=== PATIENT | female | born 1980 | race Caucasian/White ===

== ENCOUNTER 2018-01-10 01:31 | Emergency (ER) | payer SELFPAY ==
[2018-01-10] MEDS ORDERED: Morphine 4 MG/ML VIAL ONE ×2 (01:43→04:45)
[2018-01-10] MEDS ORDERED: Ketorolac Tromethamine 30 MG/ML VIAL ONE (01:43)
[2018-01-10 02:14] LABS: #Basophils 0.1 thou/uL (0.0-0.2); #Lymphocytes 2.2 thou/uL (1.20-3.40); #Monocytes 0.6 thou/uL (0.11-0.59); #Neutrophils 7.2 thou/uL (1.40-6.50); %Basophils 0.9 % (0.0-1.0); %Eosinophils 0.3 % (0.0-10.0); %Lymphocytes 21.8 % (21.0-51.0); %Monocytes 6.2 % (0.0-10.0); %Neutrophils 70.8 % (42.0-75.0); Hemoglobin 14.1 g/dL (12.0-16.0); Mean Corpuscular HGB CONC 33.8 g/dL (32.0-36.0); Mean Corpuscular Hemoglobin 30.6 pg (27.0-31.0); Mean Corpuscular Volume 90.6 fL (78.0-98.0); Platelet Count 257 thou/uL (130-400); RBC Distribution Width 11.3 % (11.5-14.5); Red Blood Cell (RBC) Count 4.62 mill/uL (4.20-5.40); White Blood Cell (WBC) Count 10.2 thou/uL (4.8-10.8)
[2018-01-10 02:18] LABS: INR-International Normal Ratio 1.2; PTT 22.6 SEC (22.9-36.1); Prothrombin Time 14.8 SEC (12.0-14.7)
[2018-01-10 02:32] LABS: BHCG - Serum Negative (NEGATIVE); Pregs Control Background? CLEAR/WHITE (CLR/WHITE); Pregs Control Bar Appear? YES (CONTROL BAR)
[2018-01-10 02:35] LABS: ALT (SGPT) 13 U/L (8-55); AST (SGOT) 19 U/L (5-34); Albumin 4.3 g/dL (3.5-5.0); Alkaline Phosphatase 45 U/L (40-150); Anion Gap 14 mmol/L (10-20); BUN (Urea Nitrogen) 10 mg/dL (7.0-18.7); Bilirubin, Total Less than 0.2 mg/dL (0.2-1.2); Calc. Creatinine Clearance 0 mL/min (70-130); Calcium 8.5 mg/dL (7.8-10.44); Carbon Dioxide 21 mmol/L (22-29); Chloride 111 mmol/L (98-107); Estimated GFR-MDRD Greater than 90; Globulin 2.5 g/dL (2.4-3.5); Glucose 105 mg/dL (70-105); Lipase 36 U/L (8-78); Protein, Total 6.8 g/dL (6.0-8.3); Sodium 142 mmol/L (136-145)
[2018-01-10 03:26] LABS: Bilirubin Negative (Negative); Blood, Urine Moderate (Negative); Clarity CLEAR (Clear); Glucose, Urine (Dipstick) Negative (Negative); Leukocyte Trace (Negative); Nitrite Negative (Negative); Protein, Urine (Dipstick) Negative (Neg-Trace); Specific Gravity, Urine 1.013 (1.002-1.036); Urobilinogen 0.2 mg/dL (0.2-1.0)
[2018-01-10 03:30] LABS: Bacteria/HPF 2+ HPF (None Seen); Hyaline Casts/LPF 0-3 HYALINE CAST LPF (0-3 Hyaline); Pathc Cast-AUWi Flag 0.58 (0-2.49); Squamous Epithelial 0-3 HPF (0-3)
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
[2018-01-10] MEDS ORDERED: Iopamidol 370 76% 100 ML VIAL ONE (16:34)
== END 2018-01-10 05:45 | disposition home or self-care (01) ==
LOC: ERS 01:31
DX: S76.311A Strain of muscle, fascia and tendon of the posterior muscle group at thigh level, right thigh, initial encounter (principal); N13.30 Unspecified hydronephrosis; N39.0 Urinary tract infection, site not specified; V43.62XA Car passenger injured in collision with other type car in traffic accident, initial encounter
CPT/HCPCS: 36415; 70450; 71045; 72125; 72170; 74177; 80053; 81003; 81015; 83690; 84703; 85025; 85610; 85730; 86850; 86900; 86901; 96361; 96374; 96375; 96376; G0390; J1885; J2270

== ENCOUNTER 2019-01-26 13:23 | Emergency (ER) | payer SELFPAY ==
[2019-01-26 15:49] LABS: #Basophils 0.1 thou/uL (0.0-0.2); #Eosinphils 0.1 thou/uL (0.0-0.7); #Lymphocytes 3.1 thou/uL (1.20-3.40); #Monocytes 0.5 thou/uL (0.11-0.59); #Neutrophils 3.5 thou/uL (1.40-6.50); %Basophils 1.2 % (0.0-1.0); %Eosinophils 1.4 % (0.0-10.0); %Lymphocytes 42.5 % (21.0-51.0); %Monocytes 6.2 % (0.0-10.0); %Neutrophils 48.7 % (42.0-75.0); Hemoglobin 14.9 g/dL (12.0-16.0); Mean Corpuscular HGB CONC 33.2 g/dL (32.0-36.0); Mean Corpuscular Hemoglobin 29.7 pg (27.0-31.0); Mean Corpuscular Volume 89.5 fL (78.0-98.0); Platelet Count 203 thou/uL (130-400); RBC Distribution Width 11.4 % (11.5-14.5); Red Blood Cell (RBC) Count 5.03 mill/uL (4.20-5.40); White Blood Cell (WBC) Count 7.2 thou/uL (4.8-10.8)
[2019-01-26 16:00] LABS: BHCG - Serum Negative (NEGATIVE); Pregs Control Background? CLEAR/WHITE (CLR/WHITE); Pregs Control Bar Appear? YES (CONTROL BAR)
[2019-01-26 16:11] LABS: ALT (SGPT) 7 U/L (8-55); AST (SGOT) 11 U/L (5-34); Albumin 4.5 g/dL (3.5-5.0); Alkaline Phosphatase 45 U/L (40-110); Anion Gap 11 mmol/L (10-20); BUN (Urea Nitrogen) 15 mg/dL (7.0-18.7); Bilirubin, Total 0.3 mg/dL (0.2-1.2); Calc. Creatinine Clearance 0 mL/min (70-130); Calcium 9.4 mg/dL (7.8-10.44); Carbon Dioxide 25 mmol/L (22-29); Chloride 107 mmol/L (98-107); Estimated GFR-MDRD Greater than 90; Globulin 2.5 g/dL (2.4-3.5); Glucose 93 mg/dL (70-105); Lipase 14 U/L (8-78); Sodium 139 mmol/L (136-145)
[2019-01-26] MEDS ORDERED: Ondansetron PF 4 MG/2 ML Vial ONE (16:31)
[2019-01-26] MEDS ORDERED: Ketorolac Tromethamine 30 MG/ML VIAL ONE (16:31)
--- NOTE | 2019-01-26 16:36 | CT ---
CT ABDOMEN AND PELVIS WITH IV CONTRAST 01/26/2019 CLINICAL INFORMATION: Reducible mass left inguinal canal. Lower abdominal pain for past 2 weeks intermittently. Intermitten t nausea. COMPARISON: Obvious left inguinal hernia is seen 01/10/2018 Technique: Multiple contiguous axial CT images are obtained through the abdomen and pelvis with IV contrast. Cor onal reformatted images are provided. FINDINGS: Lower Chest: within normal limits. Vessels: Abdominal aorta is normal in caliber. Abdomen: Portal vein:Patent Gallbladder: Within normal limits for CT imaging. Liver: within normal limits. Spleen: Granulomata present. Pancreas: within normal limits. Adrenals: within normal limits. Kidneys: Nonobstructing left renal calculi are again present. There is persistent mild left hydroneph rosis, but the dilated left ureter noted on the prior examination is no longer seen. The exact etiology for mild left hydronephrosis is uncertain based on this exam. The right kidney has a normal CT appearance for phase of imaging. Bowel: Small to moderate amount of retained fecal material is seen throughout the colon. Appendix: Not definitely visualized on this exam. Patient has a reported history of prior appendectom y. Peritoneum: No ascites or free air; no fluid collection. Mesentery and Retroperitoneum: No enlarged mesenteric or retroperitoneal lymph nodes. Abdominal Wall: within normal limits. Pelvis: Reproductive Organs: A 2 cm low-density cystic lesion with peripheral rim of enhancement is seen in t he left adnexa which may represent involuting cyst or dominant follicle. Additional cystic lesions seen within each adnexal region on the prior study have resolved. Pelvis within normal limits. Bladder: within normal limits. Bones: Postsurgical changes right femur are again seen. IMPRESSION: 1. Persistent mild left hydronephrosis with interval resolution of the left hydroureter. Etiology for the left hydronephrosis is uncertain based on this exam. 2. Stable multiple nonobstructing left renal calculi. 3. Patient reportedly has reducible mass in the left inguinal canal; however, no left inguinal hernia is visualized. 4. Constipation.
== END 2019-01-26 17:30 | disposition home or self-care (01) ==
LOC: ERS 13:23
DX: K42.9 Umbilical hernia without obstruction or gangrene (principal)
CPT/HCPCS: 36415; 74177; 80053; 83605; 83690; 84703; 85025; 96361; 96374; 96375; J1885; J2405

== ENCOUNTER 2020-08-29 15:20 | Outpatient (CLI) | payer MEDICAID ==
[2020-08-29 17:59] LABS: #Eosinphils 0.2 10x3/uL (0.0-0.5); #Monocytes 0.4 10x3/uL (0.0-1.1); #Neutrophils 6.1 10x3/uL (1.5-8.4); %Basophils 0.4 % (0.0-2.0); %Eosinophils 2.2 % (0.0-6.0); %Lymphocytes 26.7 % (18.0-47.0); %Monocytes 4.6 % (0.0-10.0); %Neutrophils 65.8 % (40.0-75.0); Hemoglobin 13.8 g/dL (12.0-15.5); Mean Corpuscular HGB CONC 32.5 g/dL (32.0-36.0); Mean Corpuscular Hemoglobin 29.7 pg (27.0-33.0); Mean Corpuscular Volume 91.4 fl (81.6-98.3); Mean Platelet Volume 12.8 fl (7.4-10.4); Platelet Count 200 10x3/uL (150-450); RBC Distribution Width 12.1 % (11.5-14.5); Red Blood Cell (RBC) Count 4.65 10x6/uL (3.90-5.03); White Blood Cell (WBC) Count 9.3 10x3/uL (3.5-10.5)
[2020-08-29 18:08] LABS: BHCG - Serum Negative (NEGATIVE); Pregs Control Background? CLEAR/WHITE (CLR/WHITE); Pregs Control Bar Appear? YES (CONTROL BAR)
[2020-08-30 07:19] LABS: SARS-CoV-2 PCR by NAA Not Detected (NotDetected)
== END 2020-08-29 15:21 | disposition home or self-care (01) ==
LOC: LABBT 15:20
PROVIDERS: ATTEND Surgery
DX: Z01.812 Encounter for preprocedural laboratory examination (principal); Z20.822 Contact with and (suspected) exposure to COVID-19
CPT/HCPCS: 84703; 85025; U0003; U0005

== ENCOUNTER 2022-05-23 14:26 | Outpatient (CLI) | payer OTHER | END 2022-05-23 14:27 | disposition home or self-care (01) | LOC: BICULT 14:26 | PROVIDERS: ATTEND Surgery | DX: R10.32 Left lower quadrant pain (principal) | CPT/HCPCS: 76999 ==

== ENCOUNTER 2022-07-27 18:40 | Emergency (ER) | payer OTHER ==
[~2022-07-27 18:40] MED LIST: Iopamidol-370 76% 500 ML MDV (1 ML CHARGE) ONE
[2022-07-27] MEDS ORDERED: Ondansetron PF 4 MG/2 ML Vial ONE (20:31)
[2022-07-27] MEDS ORDERED: Morphine 4 MG/ML VIAL ONE (20:31)
[2022-07-27 20:44] LABS: #Basophils 0.1 thou/uL (0.0-0.2); #Eosinphils 0.1 thou/uL (0.0-0.7); #Monocytes 0.4 thou/uL (0.11-0.59); %Basophils 0.6 % (0.0-1.0); %Eosinophils 1.3 % (0.0-10.0); %Lymphocytes 43.5 % (21.0-51.0); %Neutrophils 49.5 % (42.0-75.0); Hemoglobin 13.9 g/dL (12.0-16.0); Mean Corpuscular Hemoglobin 30.5 pg (27.0-31.0); Mean Corpuscular Volume 89.7 fl (78.0-98.0); Mean Platelet Volume 11.4 fL (7.4-10.4); Platelet Count 232 10x3/uL (130-400); RBC Distribution Width 12.1 % (11.5-14.5); Red Blood Cell (RBC) Count 4.56 mill/uL (4.20-5.40)
[2022-07-27 21:06] LABS: ALT (SGPT) 17 U/L (8-55); AST (SGOT) 15 U/L (5-34); Albumin 4.6 g/dL (3.5-5.0); Alkaline Phosphatase 66 U/L (40-110); Anion Gap 12 mmol/L (10-20); BUN (Urea Nitrogen) 22 mg/dL (7.0-18.7); Bilirubin, Total 0.3 mg/dL (0.2-1.2); Calc. Creatinine Clearance 0 mL/min (70-130); Calcium 9.6 mg/dL (7.8-10.44); Carbon Dioxide 25 mmol/L (22-29); Chloride 105 mmol/L (98-107); Estimated GFR 109; Globulin 2.5 g/dL (2.4-3.5); Glucose 81 mg/dL (70-105); Potassium 3.9 mmol/L (3.5-5.1); Protein, Total 7.1 g/dL (6.0-8.3); Sodium 138 mmol/L (136-145)
[2022-07-27] MEDS ORDERED: Lidocaine 1% PF 5 ML VIAL ONE (22:11)
== END 2022-07-27 23:13 | disposition home or self-care (01) ==
LOC: ERS 18:40
DX: M79.81 Nontraumatic hematoma of soft tissue (principal); F17.210 Nicotine dependence, cigarettes, uncomplicated
CPT/HCPCS: 36415; 74177; 80053; 85025; 96374; 96375; J2270; J2405; Q9967

== ENCOUNTER 2022-09-06 13:43 | Emergency (ER) | payer OTHER ==
[2022-09-06] MEDS ORDERED: Morphine 4 MG/ML VIAL ONE (14:35)
[2022-09-06 14:41] LABS: #Monocytes 0.3 thou/uL (0.11-0.59); #Neutrophils 1.2 thou/uL (1.40-6.50); %Basophils 0.9 % (0.0-1.0); %Lymphocytes 27.3 % (21.0-51.0); %Monocytes 15.3 % (0.0-10.0); %Neutrophils 56.5 % (42.0-75.0); Mean Corpuscular HGB CONC 33.3 g/dL (32.0-36.0); Mean Corpuscular Hemoglobin 30.3 pg (27.0-31.0); Mean Corpuscular Volume 91.1 fl (78.0-98.0); Platelet Count 147 10x3/uL (130-400); RBC Distribution Width 12.3 % (11.5-14.5); Red Blood Cell (RBC) Count 4.62 mill/uL (4.20-5.40); White Blood Cell (WBC) Count 2.2 10x3/uL (4.8-10.8)
[2022-09-06 15:05] LABS: ALT (SGPT) 16 U/L (8-55); AST (SGOT) 19 U/L (5-34); Albumin 4.9 g/dL (3.5-5.0); Alkaline Phosphatase 71 U/L (40-110); Anion Gap 9 mmol/L (10-20); BUN (Urea Nitrogen) 12 mg/dL (7.0-18.7); Bilirubin, Total 0.2 mg/dL (0.2-1.2); Calc. Creatinine Clearance 0 mL/min (70-130); Calcium 9.4 mg/dL (7.8-10.44); Carbon Dioxide 29 mmol/L (22-29); Chloride 104 mmol/L (98-107); Estimated GFR 99; Globulin 2.6 g/dL (2.4-3.5); Glucose 96 mg/dL (70-105); Lipase 10 U/L (8-78); Potassium 3.8 mmol/L (3.5-5.1); Protein, Total 7.5 g/dL (6.0-8.3); Sodium 138 mmol/L (136-145)
[2022-09-06 17:51] LABS: Bacteria/HPF None Seen HPF (None Seen); Bilirubin Negative (Negative); Blood, Urine 3+ (Negative); CAUTI Indications for Culture Pregnancy; Clarity Turbid (Clear); Glucose, Urine (Dipstick) Normal (Negative); Ketone, Urine 10 mg/dL (Negative); Leukocyte Negative Leu/uL (Negative); Nitrite Negative (Negative); Protein, Urine (Dipstick) 50 mg/dL (Neg-Trace); RBC/HPF Greater than 50 HPF (0-3); Specific Gravity, Urine 1.026 (1.002-1.036); Urobilinogen Normal mg/dL (Less than 2); pH, Urine 5.5 (5.0-9.0)
[2022-09-06 17:52] LABS: Pregnancy Test - Urine (BHCG) Negative (Negative); Pregu Control Background? CLEAR/WHITE (CLR/WHITE); Pregu Control Bar Appear? YES (CONTROL BAR); Specific Gravity 1.026 (1.002-1.036)
[2022-09-06 17:53] LABS: Urine Culture Reflex Yes Yes
[2022-09-06] MEDS ORDERED: cefTRIAXone (ROCEPHIN) 1 GM VIAL ONE (18:53)
== END 2022-09-06 19:30 | disposition home or self-care (01) ==
LOC: ERS 13:43
DX: R10.9 Unspecified abdominal pain (principal); F17.210 Nicotine dependence, cigarettes, uncomplicated
CPT/HCPCS: 36415; 74177; 80053; 81001; 81025; 83690; 85025; 87086; 94760; 96365; 96375; J0696; J2270; Q9967

== ENCOUNTER 2022-11-28 12:38 | Outpatient (CLI) | payer OTHER | END 2022-11-28 12:39 | disposition home or self-care (01) | LOC: BICRAD 12:38 | PROVIDERS: ATTEND Physician Assistant Medical | DX: K59.09 Other constipation (principal) | CPT/HCPCS: 74019 ==

== ENCOUNTER 2023-01-07 14:12 | Outpatient (CLI) | payer OTHER ==
[~2023-01-07 14:12] MED LIST changes: +Iopamidol 370 76% 100 ML VIAL ONE; -Iopamidol-370 76% 500 ML MDV (1 ML CHARGE) ONE
== END 2023-01-07 14:13 | disposition home or self-care (01) ==
LOC: BICCT 14:12
PROVIDERS: ATTEND Urology
DX: N13.2 Hydronephrosis with renal and ureteral calculous obstruction (principal); R35.0 Frequency of micturition; N36.8 Other specified disorders of urethra; Z72.0 Tobacco use
CPT/HCPCS: 74178

== ENCOUNTER 2023-02-25 13:11 | Outpatient (CLI) | payer OTHER ==
[2023-02-25 14:30] LABS: Bilirubin Neg (Negative); Blood, Urine 10 (Negative); Clarity Slightly Cloudy (Clear); Glucose, Urine (Dipstick) Normal (Negative); Ketone, Urine 5 mg/dL (Negative); Leukocyte 500 (Negative); Nitrite Negative (Negative); Protein, Urine (Dipstick) 30 mg/dl (Neg-Trace)
[2023-02-25 14:46] LABS: Hematocrit 43.8 % (34.9-44.5); Hemoglobin 14.1 g/dL (12.0-15.5); Mean Corpuscular HGB CONC 32.2 g/dL (32.0-36.0); Mean Corpuscular Hemoglobin 29.9 pg (27.0-33.0); Mean Platelet Volume 11.4 fl (7.4-10.4); Platelet Count 306 10x3/uL (150-450); RBC Distribution Width 11.7 % (11.5-14.5); Red Blood Cell (RBC) Count 4.71 10x6/uL (3.90-5.03)
[2023-02-25 14:50] LABS: BHCG - Serum Negative (NEGATIVE); Pregs Control Background? CLEAR/WHITE (CLR/WHITE); Pregs Control Bar Appear? YES (CONTROL BAR)
[2023-02-25 14:55] LABS: RBC/HPF 0-3 HPF (0-3)
[2023-02-25 14:56] LABS: Bacteria/HPF 4+ HPF (None Seen); Mucous/LPF 1+ LPF (<2+)
[2023-02-25 14:57] LABS: Anion Gap 17 mmol/L (10-20); BUN (Urea Nitrogen) 13 mg/dL (7.0-18.7); Calc. Creatinine Clearance 0 mL/min (70-130); Calcium 9.4 mg/dL (7.8-10.44); Carbon Dioxide 23 mmol/L (22-29); Chloride 107 mmol/L (98-107); Estimated GFR 92; Glucose 80 mg/dL (70-105); Prothrombin Time 10.9 sec (9.5-12.1); Sodium 142 mmol/L (136-145)
[2023-02-25 15:12] LABS: Potassium 5.1 mmol/L (3.5-5.1)
== END 2023-02-25 13:12 | disposition home or self-care (01) ==
LOC: LABBT 13:11
PROVIDERS: ATTEND Urology
DX: Z01.818 Encounter for other preprocedural examination (principal); F41.1 Generalized anxiety disorder; F11.21 Opioid dependence, in remission; N13.2 Hydronephrosis with renal and ureteral calculous obstruction; N30.01 Acute cystitis with hematuria; R35.0 Frequency of micturition; N81.0 Urethrocele; Z72.0 Tobacco use
CPT/HCPCS: 80048; 81001; 84703; 85027; 85610; 85730; 87086; 93005; 93010

== ENCOUNTER 2023-09-02 12:57 | Outpatient (CLI) | payer OTHER ==
[2023-09-02] MEDS ORDERED: Iopamidol 100 ML FS ONE (13:16)
== END 2023-09-02 12:58 | disposition home or self-care (01) ==
LOC: RAD 12:57
PROVIDERS: ATTEND Urology
DX: N13.2 Hydronephrosis with renal and ureteral calculous obstruction (principal); R31.29 Other microscopic hematuria
CPT/HCPCS: 74410; Q9967

== ENCOUNTER 2023-09-30 14:01 | Outpatient (CLI) | payer OTHER ==
[2023-09-30 16:00] LABS: #Basophils 0.04 10x3/uL (0.0-0.2); %Basophils 0.4 % (0.0-1.0); %Eosinophils 0.3 % (0.0-10.0); %Lymphocytes 32.2 % (21.0-51.0); %Monocytes 4.1 % (0.0-10.0); %Neutrophils 62.7 % (42.0-75.0); Hematocrit 43.9 % (36.0-47.0); Hemoglobin 14.4 g/dL (12.0-16.0); Mean Corpuscular HGB CONC 32.8 g/dL (32.0-36.0); Mean Corpuscular Hemoglobin 30.5 pg (27.0-31.0); Mean Platelet Volume 11.9 fL (7.4-10.4); Platelet Count 217 10x3/uL (130-400); RBC Distribution Width 11.8 % (11.5-14.5); Red Blood Cell (RBC) Count 4.72 mill/uL (4.20-5.40)
[2023-09-30 16:12] LABS: BHCG - Serum Negative (NEGATIVE); Pregs Control Background? CLEAR/WHITE (CLR/WHITE); Pregs Control Bar Appear? YES (CONTROL BAR)
[2023-09-30 16:27] LABS: INR-International Normal Ratio 1.1; Prothrombin Time 14.6 sec (12.0-14.7)
[2023-09-30 16:28] LABS: PTT 26.9 sec (22.9-36.1)
[2023-09-30 16:56] LABS: Anion Gap 12 mmol/L (10-20); BUN (Urea Nitrogen) 11 mg/dL (7.0-18.7); Calc. Creatinine Clearance 0 mL/min (70-130); Calcium 9.4 mg/dL (7.8-10.44); Carbon Dioxide 26 mmol/L (22-29); Chloride 110 mmol/L (98-107); Estimated GFR 94; Glucose 88 mg/dL (70-105); Potassium 3.4 mmol/L (3.5-5.1); Sodium 145 mmol/L (136-145)
== END 2023-09-30 14:02 | disposition home or self-care (01) ==
LOC: LABBT 14:01
PROVIDERS: ATTEND Urology
DX: Z01.818 Encounter for other preprocedural examination (principal); N13.30 Unspecified hydronephrosis; N20.0 Calculus of kidney; F11.21 Opioid dependence, in remission; F41.1 Generalized anxiety disorder; N36.8 Other specified disorders of urethra; N13.5 Crossing vessel and stricture of ureter without hydronephrosis; N30.01 Acute cystitis with hematuria; R31.29 Other microscopic hematuria; N36.2 Urethral caruncle; K40.91 Unilateral inguinal hernia, without obstruction or gangrene, recurrent; Z72.0 Tobacco use
CPT/HCPCS: 80048; 81001; 84703; 85025; 85610; 85730; 87086; 93005; 93010

== ENCOUNTER 2023-10-09 19:48 | Inpatient (IN) | payer OTHER ==
[2023-10-09] MEDS ORDERED: NOREPINEPHRINE 8 MG/250 ML-D5W 250 ML ONE ×2 (20:04)
[2023-10-09 20:38] LABS: Hematocrit 40.8 % (36.0-47.0); Hemoglobin 13.6 g/dL (12.0-16.0); Mean Corpuscular HGB CONC 33.3 g/dL (32.0-36.0); Mean Corpuscular Volume 92.9 fL (78.0-98.0); Platelet Count 190 10x3/uL (130-400); RBC Distribution Width 12.6 % (11.5-14.5); Red Blood Cell (RBC) Count 4.39 mill/uL (4.20-5.40)
[2023-10-09 20:40] LABS: ALT (SGPT) 15 U/L (8-55); AST (SGOT) 20 U/L (5-34); Albumin 2.8 g/dL (3.5-5.0); Alkaline Phosphatase 76 U/L (40-110); Anion Gap 22 mmol/L (10-20); BUN (Urea Nitrogen) 36 mg/dL (7.0-18.7); Bilirubin, Total 0.3 mg/dL (0.2-1.2); Calc. Creatinine Clearance 0 mL/min (70-130); Calcium 8.4 mg/dL (7.8-10.44); Carbon Dioxide 21 mmol/L (22-29); Chloride 99 mmol/L (98-107); Estimated GFR 27; Glucose 90 mg/dL (70-105); Potassium 5.6 mmol/L (3.5-5.1); Protein, Total 5.8 g/dL (6.0-8.3); Sodium 136 mmol/L (136-145)
[2023-10-09 20:45] LABS: Troponin I 0.047 ng/mL (< 0.028)
[2023-10-09] MEDS ORDERED: Sodium Chloride 0.9% 0 ML ONE (20:55)
[2023-10-09] MEDS ORDERED: Cefepime 2 GM VIAL ONE (20:55)
[2023-10-09] MEDS ORDERED: Ondansetron PF 4 MG/2 ML Vial ONE ×3 (21:10→21:15)
[2023-10-09 21:12] LABS: Band 23 % (5-11); Burr Cells SLIGHT = 2-5 cells HPF (0-1); Eosinophils 1 % (0-10); Lymphocytes 3 % (21-51); Metamyelocyte 4 % (0-0); Monocytes 2 % (0-10); Neutrophil 67 % (42-75); Platelet Adequacy Comment Platelets Decreased; Polychromasia SLIGHT = 2-3 cells HPF (0-2); Target Cells SLIGHT = 2-5 cells HPF (0-1); Toxic Granulation SLIGHT; Vacuoles MODERATE
[2023-10-09] MEDS ORDERED: fentaNYL 50 mcg/mL 1 mL Vial ONE (22:13)
[2023-10-09 22:27] LABS: Amphetamine Not Detected (NotDetected); Barbiturates Screen Not Detected (NotDetected); Benzodiazepine Screen Detected (NotDetected); Cocaine Metabolite Screen Not Detected (NotDetected); Methadone Not Detected (NotDetected); Methamphetamine Not Detected (NotDetected); Opiate Screen Detected (NotDetected); Oxycodone Screen Not Detected (NotDetected); Phencyclidine (PCP) Not Detected (NotDetected); THC/Cannabinoid Screen Detected (NotDetected); Tricyclic Screen Not Detected (NotDetected)
[2023-10-09 22:44] LABS: Bilirubin Negative (Negative); Blood, Urine 3+ (Negative); CAUTI Indications for Culture Dysuria,urgency,freq; Clarity Extra Turbid (Clear); Glucose, Urine (Dipstick) Normal (Negative); Ketone, Urine Negative (Negative); Leukocyte 500 Leu/uL (Negative); Nitrite Negative (Negative); Protein, Urine (Dipstick) 100 mg/dL (Neg-Trace); RBC/HPF Greater than 50 HPF (0-3); Squamous Epithelial None Seen HPF (0-3); Urobilinogen Normal mg/dL (Less than 2)
[2023-10-09 22:58] LABS: Bacteria/HPF 1+ HPF (None Seen)
[2023-10-09 23:01] LABS: Urine Culture Reflex Yes Yes
[2023-10-10] MEDS ORDERED: Vasopressin 20 UNITS in Sodium Chloride 0.9% 50 ML IV PRN (00:39)
[2023-10-10] MEDS ORDERED: Electrolyte Replacement Protocol IVPB SCH (00:39)
[2023-10-10] MEDS ORDERED: Acetaminophen 650 MG Suppository PR PRN (00:39)
[2023-10-10] MEDS ORDERED: NOREPINEPHRINE 8 MG/250 ML-D5W 250 ML ONE (01:16)
[2023-10-10 03:26] VITALS: BMI 24.0
[2023-10-10] MEDS: Lactated Ringer's 500 ML IV SCH (03:30)
[2023-10-10] MEDS ORDERED: Vancomycin Dose by Levels Sliding Scale (Wt <71) FS SCH (03:45)
[2023-10-10] MEDS: Vancomycin (BATCH) 1.5 GM in Premix 1 BAG IVPB SCH (03:54)
[2023-10-10] MEDS: Hydrocortisone Sod Succ/PF 100 mg/2 ml Vial IVP SCH ×2 (03:55→13:02)
[2023-10-10] MEDS: Albumin 25% 25 GM (100 mL) BOT IVPB SCH (03:55)
[2023-10-10] MEDS: Vasopressin In 0.9 % NaCl 40 UNIT in Premix 1 BAG IV SCH (03:56)
[2023-10-10] MEDS: Lactated Ringer's 1,000 ML IV SCH (03:56)
[2023-10-10] MEDS: Ondansetron PF 4 MG/2 ML Vial IVP PRN (04:29)
[2023-10-10 05:30] LABS: Hematocrit 32.8 % (36.0-47.0); Hemoglobin 10.7 g/dL (12.0-16.0); Mean Corpuscular HGB CONC 32.6 g/dL (32.0-36.0); Mean Corpuscular Volume 91.9 fL (78.0-98.0); Platelet Count 197 10x3/uL (130-400); RBC Distribution Width 12.6 % (11.5-14.5); Red Blood Cell (RBC) Count 3.57 mill/uL (4.20-5.40)
[2023-10-10 05:40] LABS: ALT (SGPT) 22 U/L (8-55); AST (SGOT) 75 U/L (5-34); Albumin 3.2 g/dL (3.5-5.0); Alkaline Phosphatase 70 U/L (40-110); Anion Gap 19 mmol/L (10-20); BUN (Urea Nitrogen) 30 mg/dL (7.0-18.7); Bilirubin, Total 0.4 mg/dL (0.2-1.2); Calc. Creatinine Clearance 35 mL/min (70-130); Calcium 7.4 mg/dL (7.8-10.44); Carbon Dioxide 17 mmol/L (22-29); Chloride 109 mmol/L (98-107); Estimated GFR 31; Globulin 1.8 g/dL (2.4-3.5); Glucose 162 mg/dL (70-105); Sodium 140 mmol/L (136-145)
[2023-10-10 05:42] LABS: Lactic Acid 4.88 mmol/L (0.5-2.2)
[2023-10-10 05:59] LABS: Band 21 % (5-11); Burr Cells SLIGHT = 2-5 cells HPF (0-1); Dohle Bodies SLIGHT; Lymphocytes 5 % (21-51); Macrocytosis SLIGHT = 6-15 cells HPF (0-5); Monocytes 3 % (0-10); Neutrophil 71 % (42-75); Platelet Adequacy Comment Platelets Normal; Polychromasia SLIGHT = 2-3 cells HPF (0-2); Toxic Granulation MODERATE; Vacuoles SLIGHT
[2023-10-10] MEDS ORDERED: Fentanyl 100 MCG/2 ML VIAL SLOW IVP SCH (06:30)
[2023-10-10] MEDS: fentaNYL 50 mcg/mL 1 mL Vial SLOW IVP SCH (06:41)
[2023-10-10] MEDS: Sodium Bicarbonate 75 MEQ in Sodium Chloride 0.45% 1,000 ML IV SCH (06:45)
[2023-10-10 06:47] LABS: Hematocrit 32.8 % (36.0-47.0); Hemoglobin 10.9 g/dL (12.0-16.0); Platelet Count 167 10x3/uL (130-400)
[2023-10-10] MEDS: fentaNYL 50 mcg/mL 1 mL Vial SLOW IVP PRN (07:19)
[2023-10-10] MEDS: Heparin 10,000 UNITS/ 10 ML VIAL SLOW IVP SCH (07:46)
[2023-10-10] MEDS: Heparin 25,000 units/D5W 500 ML IVPB SCH (07:46)
[2023-10-10 08:16] LABS: Anion Gap 24 mmol/L (10-20); BUN (Urea Nitrogen) 29 mg/dL (7.0-18.7); Calc. Creatinine Clearance 37 mL/min (70-130); Calcium 7.5 mg/dL (7.8-10.44); Carbon Dioxide 13 mmol/L (22-29); Chloride 108 mmol/L (98-107); Estimated GFR 33; Glucose 214 mg/dL (70-105); Potassium 5.5 mmol/L (3.5-5.1); Sodium 139 mmol/L (136-145)
[2023-10-10 08:20] LABS: Lactic Acid 8.28 mmol/L (0.5-2.2)
[2023-10-10] MEDS: Pantoprazole 40 MG VIAL IVP SCH (08:50)
[2023-10-10] MEDS: Dexmedetomidine In 0.9 % NaCl 100 ML IVPB SCH (08:50)
[2023-10-10] MEDS ORDERED: Buprenorphine HCl 2 MG SL TAB SL SCH (09:00)
[2023-10-10] MEDS ORDERED: Vancomycin 1 GM in Sodium Chloride 0.9% 250 ML 300 ML IVPB SCH (09:00)
[2023-10-10] MEDS ORDERED: Heparin 5,000 UNITS/ML VIAL SC SCH (09:00)
[2023-10-10] MEDS ORDERED: Famotidine 20 MG TAB PO SCH (09:00)
[2023-10-10] MEDS ORDERED: Cefepime 2 GM in Sodium Chloride 0.9% 100 ML IVPB SCH (09:00)
[2023-10-10] MEDS: Buprenorphine 8mg/Naloxone 2mg per 1 FILM SL SCH (09:04)
[2023-10-10] MEDS: NOREPINEPHRINE 8 MG/250 ML-D5W 250 ML IVPB SCH (09:12)
[2023-10-10] MEDS: Acetaminophen 325 MG TAB PO PRN (09:13)
[2023-10-10] MEDS: Sodium Chloride 0.9% 500 ML IV SCH (10:15)
[2023-10-10] MEDS ORDERED: fentaNYL 50 mcg/mL 1 mL Vial SLOW IVP SCH (10:30)
[2023-10-10] MEDS: Lorazepam 2 MG/ML VIAL SLOW IVP PRN (10:36)
[2023-10-10] MEDS ORDERED: Etomidate 40 MG (20 mL) VIAL ONE (10:41)
[2023-10-10] MEDS ORDERED: Vecuronium 10 MG VIAL IVP PRN (10:42)
[2023-10-10] MEDS ORDERED: Fentanyl BOLUS 250 ML IVPB PRN (10:45)
[2023-10-10] MEDS: Etomidate 40 MG (20 mL) VIAL IVP SCH (10:45)
[2023-10-10] MEDS ORDERED: Morphine 2 MG/ML VIAL SLOW IVP PRN (10:45)
[2023-10-10] MEDS: Rocuronium Bromide 10 MG/ML (10ML VIAL) IVP SCH (10:45)
[2023-10-10] MEDS ORDERED: Propofol BOLUS 1,000 MG/100 ML VIAL IV PRN (10:45)
[2023-10-10] MEDS ORDERED: Ventilator Sedation Protocol 1 EACH FS SCH (10:45)
[2023-10-10] MEDS ORDERED: DISCONTINUE PREVIOUS NARCOTIC PAIN MEDICATIONS AND BENZODIAZEPINES FS SCH (10:45)
[2023-10-10] MEDS ORDERED: Ventilator Sedation Protocol FS PRN (10:49)
[2023-10-10] MEDS ORDERED: Ventilator Sedation Protocol FS SCH (11:00)
[2023-10-10 11:37] LABS: Base Excess (BEa) -13.5 mEq/L (-2.0 to +3.0); CO2 Tension 36.7 mmHg (35.0-45.0); Calcium, Ionized (arterial) 0.99 mmol/L (1.12-1.30); Carboxyhemoglobin (COHb) 0.1 gm% (0.0-3.0); Hematocrit-ABG 36 % (36.0-47.0); Hemoglobin (Hb) 12.4 g/dL (12.0-16.0); O2 Tension (PaO2), arterial 408.1 mmHg (80.0-100.0); Potassium - ABG Lab 4.18 mmol/L (3.70-5.30)
[2023-10-10 11:41] LABS: ALV-art Gradient -26.175 mmHg (0-20); Actual Bicarbonate (HCO3a) 13.8 mEq/L (22-28); Puncture Site Arterial Line; pH, Arterial 7.192 (7.35-7.45)
[2023-10-10] MEDS: Propofol 1,000 MG/100 ML VIAL IV PRN (12:27)
[2023-10-10] MEDS: AMPicillin 1 GM in Sodium Chloride 0.9% 100 ML IVPB SCH (12:27)
[2023-10-10] MEDS: Propofol 1,000 MG/100 ML VIAL IV ONE (12:38)
[2023-10-10 13:12] LABS: Troponin I 72.955 ng/mL (< 0.028)
[2023-10-10] MEDS: Lorazepam 2 MG/ML VIAL ONE (13:50)
[2023-10-10] MEDS: Sodium Bicarbonate 140 MEQ in Dextrose 5% in Water 1,000 ML IV SCH (13:51)
[2023-10-10] MEDS: Fentanyl CADD 100 ML IV SCH (14:39)
[2023-10-10 16:26] LABS: Anion Gap 20 mmol/L (10-20); BUN (Urea Nitrogen) 28 mg/dL (7.0-18.7); Calc. Creatinine Clearance 45 mL/min (70-130); Calcium 7.2 mg/dL (7.8-10.44); Carbon Dioxide 18 mmol/L (22-29); Chloride 104 mmol/L (98-107); Estimated GFR 42; Glucose 264 mg/dL (70-105); Sodium 137 mmol/L (136-145)
[2023-10-10] MEDS ORDERED: Dextrose 5% in Water 1,000 ML IV PRN (18:01)
[2023-10-10] MEDS ORDERED: Dextrose 50% Abboject 50 ML SYRINGE SLOW IVP PRN (18:01)
[2023-10-10] MEDS ORDERED: Glucagon 1 MG/ML KIT IM PRN (18:01)
[2023-10-10 18:28] LABS: Vancomycin, Trough 8.2 ug/mL
[2023-10-10] MEDS: Insulin Lispro 100 UNIT/ML 10 ML VIAL SC PRN (18:37)
[2023-10-10] MEDS: Cefepime 1 GM in Sodium Chloride 0.9% 100 ML IVPB SCH (21:07)
[2023-10-10] MEDS: Vancomycin (BATCH) 1.25 GM in Premix 1 BAG IVPB SCH (21:07)
[2023-10-11 04:58] LABS: #Basophils Less than 0.03 10x3/uL (0.0-0.2); #Eosinphils Less than 0.03 10x3/uL (0.0-0.7); %Basophils 0.1 % (0.0-1.0); %Lymphocytes 5.7 % (21.0-51.0); %Monocytes 4.1 % (0.0-10.0); %Neutrophils 89.4 % (42.0-75.0); Hematocrit 29.7 % (36.0-47.0); Mean Corpuscular HGB CONC 33.7 g/dL (32.0-36.0); Mean Corpuscular Hemoglobin 30.5 pg (27.0-31.0); Mean Corpuscular Volume 90.5 fL (78.0-98.0); Mean Platelet Volume 13.1 fL (7.4-10.4); Platelet Count 160 10x3/uL (130-400); RBC Distribution Width 12.6 % (11.5-14.5); Red Blood Cell (RBC) Count 3.28 mill/uL (4.20-5.40)
[2023-10-11 05:09] LABS: Vancomycin, Random 17.2 ug/mL (See Comment)
[2023-10-11 05:15] LABS: Critical Call Chem Troponin I DOWN; Troponin I 23.351 ng/mL (< 0.028)
[2023-10-11 05:34] LABS: Hemoglobin A1c 5.8 % (4.0-6.0)
[2023-10-11 07:48] LABS: Actual Bicarbonate (HCO3a) 21.9 mEq/L (22-28); Base Excess (BEa) 1.7 mEq/L (-2.0 to +3.0); Calcium, Ionized (arterial) 0.91 mmol/L (1.12-1.30); Carboxyhemoglobin (COHb) 0.3 gm% (0.0-3.0); Hematocrit-ABG 31 % (36.0-47.0); Hemoglobin (Hb) 10.7 g/dL (12.0-16.0); O2 Tension (PaO2), arterial 99.4 mmHg (80.0-100.0)
[2023-10-11 07:56] LABS: pH, Arterial 7.609 (7.35-7.45)
[2023-10-11 07:57] LABS: CO2 Tension 22.4 mmHg (35.0-45.0); Potassium - ABG Lab 2.55 mmol/L (3.70-5.30); Puncture Site RRAD
[2023-10-11 09:11] LABS: Anion Gap 19 mmol/L (10-20); BUN (Urea Nitrogen) 28 mg/dL (7.0-18.7); Calc. Creatinine Clearance 67 mL/min (70-130); Calcium 7.5 mg/dL (7.8-10.44); Carbon Dioxide 19 mmol/L (22-29); Chloride 101 mmol/L (98-107); Cholesterol 52 mg/dl (< 200 Desired); Estimated GFR 63; Glucose 228 mg/dL (70-105); Potassium 2.8 mmol/L (3.5-5.1); Sodium 136 mmol/L (136-145); Triglycerides 157 mg/dL (Less than 150)
[2023-10-11] MEDS: Potassium Chloride 20 MEQ in Premix 1 BAG IVPB SCH (10:14)
[2023-10-11] MEDS: Cefepime 1 GM in Sodium Chloride 0.9% 100 ML IVPB SCH (13:29)
[2023-10-11] MEDS ORDERED: Sterile Water 10 ML VIAL FS PRN (16:40)
[2023-10-11] MEDS ORDERED: Senokot S 8.6-50 MG TAB PO PRN (20:59)
[2023-10-11 23:50] LABS: Potassium 2.5 mmol/L (3.5-5.1)
[2023-10-12] MEDS: D5 LR w/20 mEq KCL 1,000 ML IV SCH (00:15)
[2023-10-12] MEDS: Cefepime 2 GM in Sodium Chloride 0.9% 100 ML IVPB SCH ×2 (00:15→12:47)
[2023-10-12] MEDS: Potassium Chloride 20 MEQ in Premix 1 BAG IVPB SCH ×2 (00:15→15:12)
[2023-10-12] MEDS: Magnesium 2 GM/50 ML(in water) 2 GM in Premix 1 BAG IVPB SCH (01:13)
[2023-10-12 04:48] LABS: #Basophils Less than 0.03 10x3/uL (0.0-0.2); #Eosinphils Less than 0.03 10x3/uL (0.0-0.7); %Basophils 0.2 % (0.0-1.0); %Lymphocytes 8.3 % (21.0-51.0); %Monocytes 5.1 % (0.0-10.0); %Neutrophils 85.8 % (42.0-75.0); Hematocrit 28.7 % (36.0-47.0); Hemoglobin 9.7 g/dL (12.0-16.0); Mean Corpuscular HGB CONC 33.8 g/dL (32.0-36.0); Mean Corpuscular Hemoglobin 30.4 pg (27.0-31.0); Mean Platelet Volume 12.5 fL (7.4-10.4); Platelet Count 127 10x3/uL (130-400); RBC Distribution Width 12.4 % (11.5-14.5); Red Blood Cell (RBC) Count 3.19 mill/uL (4.20-5.40)
[2023-10-12 05:01] LABS: Vancomycin, Random 23.7 ug/mL (See Comment)
[2023-10-12 05:03] LABS: Anion Gap 11 mmol/L (10-20); BUN (Urea Nitrogen) 16 mg/dL (7.0-18.7); Calc. Creatinine Clearance 105 mL/min (70-130); Calcium 7.3 mg/dL (7.8-10.44); Carbon Dioxide 28 mmol/L (22-29); Chloride 104 mmol/L (98-107); Estimated GFR 101; Glucose 160 mg/dL (70-105); Magnesium 2.8 mg/dL (1.6-2.6); Potassium 2.8 mmol/L (3.5-5.1); Sodium 140 mmol/L (136-145)
[2023-10-12 05:10] LABS: Troponin I 7.336 ng/mL (< 0.028)
[2023-10-12 05:12] LABS: Phosphorus 0.9 mg/dL (2.3-4.7)
[2023-10-12 07:06] LABS: Actual Bicarbonate (HCO3a) 27.1 mEq/L (22-28); Base Excess (BEa) 4.9 mEq/L (-2.0 to +3.0); CO2 Tension 31.2 mmHg (35.0-45.0); Calcium, Ionized (arterial) 1.02 mmol/L (1.12-1.30); Carboxyhemoglobin (COHb) 0.3 gm% (0.0-3.0); Hematocrit-ABG 31 % (36.0-47.0); Hemoglobin (Hb) 10.5 g/dL (12.0-16.0); O2 Tension (PaO2), arterial 74.5 mmHg (80.0-100.0); Potassium - ABG Lab 2.88 mmol/L (3.70-5.30); Puncture Site Arterial Line; pH, Arterial 7.556 (7.35-7.45)
[2023-10-12] MEDS: Potassium Phosphate 30 MMOL in Sodium Chloride 0.9% 250 ML 250 ML IVPB SCH (08:07)
[2023-10-12] MEDS: Polyethylene Glycol 3350 17 GM Packet PER TUBE SCH (08:07)
[2023-10-12] MEDS: Vancomycin 1 GM in Premix 1 BAG IVPB SCH (12:47)
[2023-10-12 14:48] LABS: Phosphorus 1.9 mg/dL (2.3-4.7); Potassium 3.1 mmol/L (3.5-5.1)
[2023-10-12] MEDS: Potassium Phosphate 15 MMOL in Sodium Chloride 0.9% 100 ML IVPB SCH (16:12)
[2023-10-12] MEDS: Heparin 5,000 UNITS/ML VIAL SC SCH (20:07)
[2023-10-12] MEDS: fentaNYL 25 mcg Patch TD SCH (20:17)
[2023-10-12] MEDS: Simethicone Chewable 80 MG TAB PO PRN (23:08)
[2023-10-12] MEDS: Ipratropium/Albuterol 3 ML NEB NEB PRN (23:44)
[2023-10-13 04:41] LABS: #Basophils Less than 0.03 10x3/uL (0.0-0.2); #Eosinphils Less than 0.03 10x3/uL (0.0-0.7); %Basophils 0.1 % (0.0-1.0); %Eosinophils 0.1 % (0.0-10.0); %Monocytes 11.8 % (0.0-10.0); Hematocrit 30.4 % (36.0-47.0); Mean Corpuscular HGB CONC 32.9 g/dL (32.0-36.0); Mean Corpuscular Volume 94.1 fL (78.0-98.0); Mean Platelet Volume 11.8 fL (7.4-10.4); Platelet Count 123 10x3/uL (130-400); RBC Distribution Width 12.8 % (11.5-14.5); Red Blood Cell (RBC) Count 3.23 mill/uL (4.20-5.40)
[2023-10-13 04:54] LABS: Vancomycin, Random 28.5 ug/mL (See Comment)
[2023-10-13 04:57] LABS: Anion Gap 11 mmol/L (10-20); BUN (Urea Nitrogen) 15 mg/dL (7.0-18.7); Calc. Creatinine Clearance 102 mL/min (70-130); Calcium 7.8 mg/dL (7.8-10.44); Carbon Dioxide 29 mmol/L (22-29); Chloride 108 mmol/L (98-107); Estimated GFR 110; Glucose 87 mg/dL (70-105); Potassium 3.1 mmol/L (3.5-5.1); Sodium 145 mmol/L (136-145)
[2023-10-13 04:59] LABS: Phosphorus 1.3 mg/dL (2.3-4.7)
[2023-10-13] MEDS: Potassium Chloride 20 MEQ in Premix 1 BAG IVPB SCH (05:47)
[2023-10-13] MEDS: Potassium Phosphate 22 MMOL in Sodium Chloride 0.9% 250 ML 250 ML IVPB SCH (05:48)
[2023-10-13] MEDS: Hydrocortisone Sod Succ/PF 100 mg/2 ml Vial IVP SCH (08:52)
[2023-10-13] MEDS: ALPRAZolam 1 MG TAB PO PRN (08:56)
[2023-10-13] MEDS: Budesonide 0.5 MG/2 ML NEB INH SCH ×2 (10:57→21:42)
[2023-10-13] MEDS: ALPRAZolam 1 MG TAB PO SCH (12:26)
[2023-10-13] MEDS: Bisacodyl 10 MG SUPP PR SCH ×2 (12:26→20:05)
[2023-10-13 12:51] LABS: Potassium 3.1 mmol/L (3.5-5.1)
[2023-10-13 12:57] LABS: Magnesium 1.8 mg/dL (1.6-2.6)
[2023-10-13] MEDS: Potassium Chloride 40 MEQ in Premix 1 BAG IVPB SCH (13:39)
[2023-10-13] MEDS: Magnesium 2 GM/50 ML(in water) 2 GM in Premix 1 BAG IVPB SCH (13:40)
[2023-10-13] MEDS: Ipratropium/Albuterol 3 ML NEB NEB SCH (14:27)
[2023-10-13] MEDS ORDERED: Cefepime 2 GM in Sodium Chloride 0.9% 100 ML IVPB SCH (16:00)
[2023-10-13 18:37] LABS: Potassium 3.3 mmol/L (3.5-5.1)
[2023-10-13] MEDS: Ondansetron ODT 4 MG TAB PO PRN (20:01)
[2023-10-13] MEDS: Senokot S 8.6-50 MG TAB PO SCH (20:04)
[2023-10-13] MEDS: Potassium Chloride 20 MEQ TAB PO SCH (20:04)
[2023-10-13] MEDS: Polyethylene Glycol 3350 17 GM Packet PO SCH (20:04)
[2023-10-13] MEDS: Nitrofurantoin Monohyd/M-Cryst 100 MG CAP PO SCH (20:05)
[2023-10-14 01:04] LABS: Potassium 3.1 mmol/L (3.5-5.1)
[2023-10-14] MEDS: Potassium Chloride 20 MEQ TAB PO SCH ×2 (01:40→07:30)
[2023-10-14] MEDS: fentaNYL 50 mcg/hour Patch TD SCH (06:04)
[2023-10-14 06:07] LABS: #Basophils Less than 0.03 10x3/uL (0.0-0.2); %Basophils 0.1 % (0.0-1.0); %Eosinophils 0.5 % (0.0-10.0); %Monocytes 8.3 % (0.0-10.0); %Neutrophils 63.6 % (42.0-75.0); Hematocrit 28.3 % (36.0-47.0); Hemoglobin 9.2 g/dL (12.0-16.0); Mean Corpuscular HGB CONC 32.5 g/dL (32.0-36.0); Mean Corpuscular Hemoglobin 30.6 pg (27.0-31.0); Mean Platelet Volume 11.5 fL (7.4-10.4); Platelet Count 154 10x3/uL (130-400); Red Blood Cell (RBC) Count 3.01 mill/uL (4.20-5.40)
[2023-10-14 06:29] LABS: Anion Gap 10 mmol/L (10-20); BUN (Urea Nitrogen) 13 mg/dL (7.0-18.7); Calc. Creatinine Clearance 125 mL/min (70-130); Carbon Dioxide 29 mmol/L (22-29); Chloride 108 mmol/L (98-107); Estimated GFR 115; Glucose 76 mg/dL (70-105); Potassium 3.5 mmol/L (3.5-5.1); Sodium 143 mmol/L (136-145)
[2023-10-14] MEDS: Pantoprazole DR 40 MG TAB PO SCH (08:57)
[2023-10-14 09:56] LABS: Magnesium 1.9 mg/dL (1.6-2.6)
[2023-10-14] MEDS: PHOS-NAK 1 PKT PACK PO SCH (10:54)
[2023-10-14] MEDS: Magnesium 2 GM/50 ML(in water) 2 GM in Premix 1 BAG IVPB SCH (10:54)
[2023-10-14] MEDS: Ampicillin 2 GM in Sodium Chloride 0.9% 100 ML IVPB SCH (11:30)
[2023-10-14 13:20] LABS: Potassium 3.8 mmol/L (3.5-5.1)
[2023-10-14] MEDS: Doxycycline 100 MG CAP PO SCH (22:17)
[2023-10-15 06:24] LABS: #Basophils 0.08 10x3/uL (0.0-0.2); %Basophils 0.6 % (0.0-1.0); %Eosinophils 1.6 % (0.0-10.0); %Lymphocytes 24.9 % (21.0-51.0); %Monocytes 6.4 % (0.0-10.0); Hematocrit 32.8 % (36.0-47.0); Hemoglobin 10.7 g/dL (12.0-16.0); Mean Corpuscular HGB CONC 32.6 g/dL (32.0-36.0); Mean Corpuscular Hemoglobin 29.7 pg (27.0-31.0); Mean Corpuscular Volume 91.1 fL (78.0-98.0); Mean Platelet Volume 11.3 fL (7.4-10.4); Platelet Count 168 10x3/uL (130-400)
[2023-10-15 06:37] LABS: Anion Gap 17 mmol/L (10-20); BUN (Urea Nitrogen) 8 mg/dL (7.0-18.7); Calc. Creatinine Clearance 120 mL/min (70-130); Calcium 8.3 mg/dL (7.8-10.44); Carbon Dioxide 23 mmol/L (22-29); Chloride 105 mmol/L (98-107); Estimated GFR 113; Glucose 73 mg/dL (70-105); Magnesium 1.4 mg/dL (1.6-2.6); Potassium 3.8 mmol/L (3.5-5.1); Sodium 141 mmol/L (136-145)
[2023-10-15] MEDS: HYDROcodone/Acetaminophen 5/325 mg Tablet PO SCH (06:48)
[2023-10-15 07:08] LABS: CK (CPK) 124 U/L (29-168); Phosphorus 3.7 mg/dL (2.3-4.7)
[2023-10-15] MEDS: Oxybutynin ER 5 MG TAB PO SCH (09:11)
[2023-10-15] MEDS: Magnesium Sulfate In Water 4 GM in Premix 1 BAG IVPB SCH (09:11)
[2023-10-15] MEDS: Phenazopyridine HCl 100 MG TAB PO SCH (09:11)
[2023-10-15] MEDS: Polyethylene Glycol 3350 17 GM Packet PO SCH (09:12)
[2023-10-15] MEDS: Ibuprofen 200 MG TAB PO PRN (09:12)
[2023-10-15] MEDS: Aspirin 81 mg Enteric Coated Tablet PO SCH (09:12)
[2023-10-16 05:40] LABS: #Basophils 0.03 10x3/uL (0.0-0.2); %Basophils 0.3 % (0.0-1.0); %Eosinophils 2.3 % (0.0-10.0); %Lymphocytes 20.9 % (21.0-51.0); %Monocytes 4.1 % (0.0-10.0); %Neutrophils 69.4 % (42.0-75.0); Hematocrit 30.8 % (36.0-47.0); Hemoglobin 9.6 g/dL (12.0-16.0); Mean Corpuscular HGB CONC 31.2 g/dL (32.0-36.0); Mean Corpuscular Hemoglobin 30.2 pg (27.0-31.0); Mean Corpuscular Volume 96.9 fL (78.0-98.0); Mean Platelet Volume 10.8 fL (7.4-10.4); Platelet Count 185 10x3/uL (130-400); RBC Distribution Width 13.2 % (11.5-14.5); Red Blood Cell (RBC) Count 3.18 mill/uL (4.20-5.40)
[2023-10-16 06:00] LABS: Anion Gap 17 mmol/L (10-20); BUN (Urea Nitrogen) 6 mg/dL (7.0-18.7); Calc. Creatinine Clearance 124 mL/min (70-130); Calcium 8.5 mg/dL (7.8-10.44); Carbon Dioxide 23 mmol/L (22-29); Chloride 108 mmol/L (98-107); Estimated GFR 115; Glucose 70 mg/dL (70-105); Magnesium 1.7 mg/dL (1.6-2.6); Potassium 3.8 mmol/L (3.5-5.1); Sodium 144 mmol/L (136-145)
[2023-10-16] MEDS: Magnesium 2 GM/50 ML(in water) 2 GM in Premix 1 BAG IVPB SCH (09:44)
[2023-10-16] MEDS ORDERED: Magnesium 2 GM/50 ML(in water) 2 GM in Premix 1 BAG IVPB SCH (10:00)
[2023-10-16 11:15] VITALS: BMI 24.8
[2023-10-16] MEDS ORDERED: Regadenoson 0.4 MG/5 ML SYRINGE ONE (13:28)
[2023-10-16] MEDS: HYDROcodone/Acetaminophen 5/325 mg Tablet PO PRN ×2 (14:59→18:38)
[2023-10-16] MEDS ORDERED: Melatonin 3 MG TAB PO PRN (17:21)
[2023-10-18 04:50] LABS: #Basophils Less than 0.03 10x3/uL (0.0-0.2); %Basophils 0.1 % (0.0-1.0); %Eosinophils 0.9 % (0.0-10.0); %Lymphocytes 28.1 % (21.0-51.0); %Monocytes 8.1 % (0.0-10.0); Hematocrit 31.3 % (36.0-47.0); Hemoglobin 10.1 g/dL (12.0-16.0); Mean Corpuscular HGB CONC 32.3 g/dL (32.0-36.0); Mean Corpuscular Volume 92.9 fL (78.0-98.0); Mean Platelet Volume 10.8 fL (7.4-10.4); Platelet Count 219 10x3/uL (130-400); RBC Distribution Width 13.7 % (11.5-14.5); Red Blood Cell (RBC) Count 3.37 mill/uL (4.20-5.40)
[2023-10-18 05:02] LABS: Anion Gap 15 mmol/L (10-20); BUN (Urea Nitrogen) 4 mg/dL (7.0-18.7); Calc. Creatinine Clearance 124 mL/min (70-130); Calcium 8.6 mg/dL (7.8-10.44); Carbon Dioxide 22 mmol/L (22-29); Chloride 110 mmol/L (98-107); Estimated GFR 116; Glucose 79 mg/dL (70-105); Magnesium 1.6 mg/dL (1.6-2.6); Potassium 3.4 mmol/L (3.5-5.1); Sodium 144 mmol/L (136-145)
[2023-10-18] MEDS ORDERED: HYDROcodone/Acetaminophen 5/325 mg Tablet PO PRN (17:59)
[2023-10-18 19:47] VITALS: TEMP 99.1
[2023-10-18] MEDS: HYDROcodone/Acetaminophen 5/325 mg Tablet PO PRN (19:54)
[2023-10-19 07:34] VITALS: BP 124/72
== END 2023-10-19 12:28 | disposition home or self-care (01) | DRG 871 ==
LOC: ERS 19:48 → CCU 10-10 01:02 → 2NO 10-14 21:25
PROVIDERS: ADMIT Student in an Organized Health Care Education/Training Program; ATTEND Family Medicine
PROC: 3E033XZ Introduction of Vasopressor into Peripheral Vein, Percutaneous Approach (ICD-10-PCS; 2023-10-09)
PROC: 0BH17EZ Insertion of Endotracheal Airway into Trachea, Via Natural or Artificial Opening (ICD-10-PCS; principal; 2023-10-10)
PROC: 5A1945Z Respiratory Ventilation, 24-96 Consecutive Hours (ICD-10-PCS; 2023-10-10)
PROC: 06HY33Z Insertion of Infusion Device into Lower Vein, Percutaneous Approach (ICD-10-PCS; 2023-10-10)
PROC: 04HY32Z Insertion of Monitoring Device into Lower Artery, Percutaneous Approach (ICD-10-PCS; 2023-10-10)
PROC: 4A133R1 Monitoring of Arterial Saturation, Peripheral, Percutaneous Approach (ICD-10-PCS; 2023-10-10)
DX: A41.81 Sepsis due to Enterococcus (principal); G93.41 Metabolic encephalopathy; I21.4 Non-ST elevation (NSTEMI) myocardial infarction; R65.21 Severe sepsis with septic shock; J96.01 Acute respiratory failure with hypoxia; N13.6 Pyonephrosis; N17.9 Acute kidney failure, unspecified; J98.11 Atelectasis; M62.82 Rhabdomyolysis; E87.4 Mixed disorder of acid-base balance; E83.39 Other disorders of phosphorus metabolism; G89.4 Chronic pain syndrome; Z53.8 Procedure and treatment not carried out for other reasons; F17.210 Nicotine dependence, cigarettes, uncomplicated; F11.21 Opioid dependence, in remission; E87.5 Hyperkalemia; E86.0 Dehydration; Z96.0 Presence of urogenital implants; Z88.5 Allergy status to narcotic agent; N18.30 Chronic kidney disease, stage 3 unspecified; E88.09 Other disorders of plasma-protein metabolism, not elsewhere classified; E87.6 Hypokalemia; F41.9 Anxiety disorder, unspecified; E83.42 Hypomagnesemia; F43.10 Post-traumatic stress disorder, unspecified; Z79.899 Other long term (current) drug therapy; Z90.49 Acquired absence of other specified parts of digestive tract; Z88.1 Allergy status to other antibiotic agents
CPT/HCPCS: 36415; 36416; 51701; 71045; 74018; 74176; 78452; 80048; 80053; 80061; 80202; 80306; 81001; 82550; 82805; 83036; 83605; 83735; 84100; 84484; 85025; 85730; 87040; 87077; 87086; 87186; 93005; 93010; 93017; 93306; 94002; 94003; 94640; 94760; 96361; 96365; 96366; 96368; 96375; 99292; A9502; J0290; J0571; J0692; J1644; J1720; J1815; J2060; J2405; J2470; J2704; J2785; J3010; J3370; J3370-JW; J3475; J3480; J7030; J7050; J7070; J7120; J7620; J7626; P9047; Q0162

== ENCOUNTER 2024-12-13 15:14 | Outpatient (CLI) | payer OTHER | END 2024-12-13 15:15 | disposition home or self-care (01) | LOC: CT 15:14 | PROVIDERS: ATTEND Urology | DX: N13.0 Hydronephrosis with ureteropelvic junction obstruction (principal); N13.2 Hydronephrosis with renal and ureteral calculous obstruction; R35.0 Frequency of micturition; N36.2 Urethral caruncle; R93.422 Abnormal radiologic findings on diagnostic imaging of left kidney | CPT/HCPCS: 36000; 74178; Q9967 ==